=== PATIENT | female | born 1955 | race Caucasian/White ===

== ENCOUNTER 2024-10-27 17:07 | Emergency (ER) | payer MEDICARE, MEDICAID, SELFPAY ==
--- NOTE | 2024-10-27 17:16 | ED_ITS ---
HPI - General Adult General Chief complaint: Eye Problems Stated complaint: scratched eye lid , now inflammation on lids Time Seen by Provider: 10/27/24 17:16 Source: patient and EMS Mode of arrival: EMS Limitations: no limitations History of Present Illness ED Provider: Kristen Moreira PA-C HPI narrative: Patient is a 69 year old assigned female at with a history of anxiety, arthritis, asthma, depression, tobacco use, and PTSD presenting to the emergency department today with left eye swelling and itchiness. Patient states that over the last few days her left eye has been itchy and she has been itching it extensively. Patient states that she was seen by her PCP yesterday and they sent referrals to an payroll specialist but the swelling wasn't this bad. Patient denies any dizziness, lightheadedness, abdominal pain, nausea, vomiting, fever, chills, blurry vision, double vision, loss of vision, chest pain, difficulty breathing, shortness of breath, back pain, night sweats, pain with urination, increased urinary frequency, increased urinary urgency, blood in her urine or stool, syncope or a near syncopal episode, recent trauma or falls, bowel incontinence, bladder incontinence, or any other complaints at this time. Relieving factors: none Exacerbating factors: none Associated symptoms: denies other symptoms Treatments prior to arrival: none Related Data Previous Rx's ?Medication ?Instructions ?Recorded erythromycin 5 mg/gram (0.5 %) eye 0.5 inch ophthalmic (eye) Q4H #3.5 10/27/24 ointment grams loratadine 10 mg capsule (Allergy 10 mg PO DAILY #14 c aps 10/27/24 Relief (loratadine)) Allergies Allergy/AdvReac Type Severity Reaction Status Date / Time No Known Allergies Allergy Verified 10/27/24 17:22 Review of Systems 2 Constitutional: Constitutional: Reports no additional constitutional complaints, Denies chills, Denies fever(s) and Denies night sweats Eyes: Eyes: Reports no additional eye complaints, Denies blurry vision, Denies change in vision, Denies diplopia, Denies eye discharge, Denies loss of vision and Denies eye pain ENT: Denies dizziness Comments: left eye lid swelling + left eye itching Cardiovascular: Cardiovascular: Reports no additional cardiovascular complaints, Denies chest pain, Denies lightheadedness, Denies Loss of Consciousness and Denies dyspnea Respiratory: Respiratory: Reports no additional respiratory complaints and Denies dyspnea Gastrointestinal: Gastrointestinal: Reports no additional gastrointestinal complaints, Denies abdominal pain, Denies melena, Denies hematochezia, Denies change in bowel habits and Denies change in stool character Genitourinary: Genitourinary: Denies hematuria, Denies urinary frequency, Denies dysuria, Denies urinary incontinence, Denies urinary hesitancy and Denies urinary urgency Musculoskeletal: Musculoskeletal: Reports no additional musculoskeletal complaints, Denies numbness and Denies tingling Neurologic: Denies dizziness, Denies loss of vision, Denies numbness and Denies tingling Psychiatric: Psychiatric: Reports no additional psychiatric complaints Endocrine: Endocrine: Reports no additional endocrine complaints Hematologic/Lymphatic: Hematologic/Lymphatic: Reports no additional hematologic/lymphatic complaints Allergic/Immunologic: Allergic/Immunologic: Reports no additional allergic/immunologic complaints [facility] Past Medical History Attestation statement: The following information was validated with the patient. Source: old records reviewed and nursing notes reviewed Social History Social History Advance Directives: No Advance Directives Information Provided: Yes Physical Exam ED Vital Signs: Vital Signs - 24 hr 10/27/24 17:19 Temperature 97 F Pulse Rate 83 Respiratory Rate 16 Blood Pressure 125/75 Pulse Oximetry 98 Oxygen Delivery Method Room Air BMI result Body Mass Index 22.7 Const General: cooperative, no acute distress, alert and awake Nutritional Appearance: well nourished Orientation/consciousness: patient oriented x3 HENMT Head: Yes normal to inspection and Yes atraumatic Ears: hearing grossly normal bilaterally and external ears normal General nose exam: Normal external nose present, no nasal discharge noted and no epistaxis Face and sinus: Yes normal facial exam, No abrasion and No laceration Mouth: Normal oral and palatal mucosa present, no drooling and no muffled voice Eyes Other: Conjunctivae: conjunctivae normal Pupils: Equal, round and reactive pupils present EOM: EOMs intact bilaterally Neck Neck: Yes normal visual inspection, Yes full ROM and Yes no lymphadenopathy Resp Effort & Inspection: normal respiratory effort and able to speak in complete sentences Neuro General: patient oriented x3, moves all extremities and CN's II-XI intact bilaterally Cranial nerves: Yes Equal, round and reactive pupils present Cognition (Neuro): normal cognition Extrem General: Yes normal to inspection, Yes full ROM and Yes capillary refill normal Psych Appearance: grossly normal Mental Status: mental status grossly normal Affect: normal affect Attitude: cooperative Thought process: Normal thought process present Thought content: Normal thought content present Insight: Good insight present (Psych) Medical Decision Making Medical Decision Making MDM Narrative: Patient is a 69 year old assigned female at with a history of anxiety, arthritis, asthma, depression, tobacco use, and PTSD presenting to the emergency department today with left eye swelling and itchiness. Patient's physical exam was as noted in the physical exam portion of this note. Patient's left upper eye lid was swollen however - it was dependent soft tissue swelling with no erythema or warmth. No evidence of cellulitis. Given the patient has eye itching - will cover with erythromycin to provide some itching relief as well as OTC loratidine. I reviewed the note from the patient's PCP appointment yesterday and confirmed that an retail loan originator assistant referral was sent. I explained my physical exam findings to the patient. I answered all questions asked by the patient. I stressed the importance of the patient taking her medication as directed (either prescribed or as the over the counter packaging recommends). I stressed the importance of the patient following up with her primary care provider and an payroll specialist. I stressed the importance of the patient returning to the emergency department immediately if her symptoms were to worsen or if she were to develop any dizziness, shortness of breath, difficulty breathing, chest pain, blurry vision, loss of vision, nausea, vomiting, abdominal pain, fever, chills, back pain, or any other complaints. Patient verbalized agreement and understanding with this treatment plan and discharge. Differential Diagnosis Differential Diagnoses: The differential diagnosis associated with the presentation includes Soft tissue swelling of the left upper eye lid Allergic conjunctivitis Admission/Observation Consideration of admission/observation: Escalation of care including admission/observation considered Patient would have been admitted to the hospital had her clinical presentation warranted hospital admission. Independent Historian Clinical information obtained from an independent historian. History obtained from or confirmed by: EMS (EMS provided additional history and confirmed the history provided by the patient.) External Record Review External record reviewed: Outpatient record (reviewed [facility] PCP office note as noted in the MDM Rationale portion of this note. ) Prescription Management I considered prescription management with: Antibiotic (patient prescribed erythromycin as noted in the MDM Rationale portion of this note. ) Discharge Plan Discharge Clinical Impression: Periorbital swelling Patient Disposition: Home, Self-Care Instructions: Eye Pain (ED) Additional Instructions: Sleep sitting as upright as you can to help keep the swelling in your left upper eyelid down. I prescribed you ointment to help with the inner eye itchiness as well as an oral medication that you should take as prescribed. Your primary care provider in the [facility] already sent ophthalmology referrals. Please follow up with an payroll specialist. Follow up with you primary care provider. Return to the emergency department immediately if your symptoms worsen or if you develop any numbness, tingling, dizziness, shortness of breath, difficulty breathing, chest pain, blurry vision, loss of vision, nausea, vomiting, abdominal pain, fever, chills, back pain, or any other complaints. Please see the information below about our Patient Portal. If you are not yet enrolled in the [facility] Patient Portal, you will receive an enrollment email invitation following your visit to any [facility] care setting. You may also self-enroll in the Patient Portal by visiting our website: [email or web address] The following information is required to access the Patient Portal: - Your [facility] Medical Record Number - Your personal home email address (must match what is in your electronic medical record, Registration staff can assist with this) - Name - Date of Capabilities of the Patient Portal: - Message some providers - View upcoming appointments - Access your health summary, medical history, and visit history - View current conditions and allergies - View procedure and lab results - View your medications, including guidelines, side effects, and precautions - Complete pre-appointment questionnaires requested by your provider - Ready summary reports of your office visits and procedures To access the Patient Portal Mobile [employer], follow these directions: - Search [employer] in the Eugenia Store or [employer] Store - Download the Eugenia - Search for [facility] - Enter your login/password Prescriptions: New erythromycin 5 mg/gram (0.5 %) ointment 0.5 inch ophthalmic (eye) Q4H Qty: 3.5 0RF Allergy Relief (loratadine) 10 mg capsule 10 mg PO DAILY Qty: 14 0RF Print Language: Ukrainian
[2024-10-27 17:19] VITALS: BP 125/75; BP 140/82; PULSE 83; PULSE 84; RESP 16; TEMP 36.1; O2SAT 98; BMI 22.7
[2024-10-27 18:57] VITALS: BP 119/71; PULSE 63; RESP 16; TEMP 37.1; O2SAT 95
[2024-10-27 18:58] VITALS: BP 119/71; PULSE 63; RESP 16; TEMP 37.1; O2SAT 95
== END 2024-10-27 19:41 | disposition home or self-care (01) ==
PROVIDERS: Emergency Provider Emergency Medicine
DX: H02.844 Edema of left upper eyelid (principal); H57.12 Ocular pain, left eye
CPT/HCPCS: 99283; 99284

== ENCOUNTER 2024-12-14 18:51 | Emergency (ER) | payer MEDICARE, MEDICAID, SELFPAY ==
--- NOTE | ~2024-12-14 | US_ITS ---
CLINICAL HISTORY: right leg pain Venous duplex ultrasound right lower extremity Comparison: None provided Findings: The visualized deep veins are fully compressible with normal Doppler color flow and spectral tracings. No popliteal cyst. IMPRESSION: 1. Negative for right lower extremity deep vein thrombosis. This document has been electronically signed by: Pio Wheeler MD on 12/14/2024 20:19:42
[2024-12-14 18:55] VITALS: BP 137/82; PULSE 84; O2SAT 93
--- NOTE | 2024-12-14 18:56 | ED_ITS ---
HPI - General Adult General Chief complaint: Extremity Injury, Lower Stated complaint: Right leg pain Time Seen by Provider: 12/14/24 23:50 Source: patient and EMS Mode of arrival: EMS Limitations: no limitations History of Present Illness ED Provider: Franklyn EATON HPI narrative: The patient is a 69-year-old female with a history of CAD with AZ 1 year ago and 3 years ago. Patient presents to the ED reporting just prior to EMS activation she developed atraumatic sharp right medial leg pain. The patient reports she recalls similar symptoms when she last had a heart attack, prompting ED evaluation. The patient denies associated chest pain, shortness of breath, pleurisy, cough, neck pain, back pain, fever/chills, nausea, vomiting, diaphoresis, or other acute somatic complaint. The patient denies distal paresthesias or recent trauma or falls. Related Data Previous Rx's ?Medication ?Instructions ?Recorded erythromycin 5 mg/gram (0.5 %) eye 0.5 inch ophthalmic (eye) Q4H #3.5 10/27/24 ointment grams loratadine 10 mg capsule (Allergy 10 mg PO DAILY #14 c aps 10/27/24 Relief (loratadine)) acetaminophen 500 mg capsule 1,000 mg (2 x 500 mg) PO .q8 PRN 12/15/24 fever or pain #30 caps cyclobenzaprine 10 mg tablet 10 mg PO TID PRN muscle s pasm #14 12/15/24 tabs ibuprofen 600 mg tablet 600 mg PO Q8H PRN fever or p ain 12/15/24 #30 tabs Allergies Allergy/AdvReac Type Severity Reaction Status Date / Time No Known Allergies Allergy Verified 12/14/24 19:00 Review of Systems 2 Review of Systems: Yes all other systems are reviewed and are negative [facility] Social History Social History Smoked in Last 30 Days: Yes Use of substances other than those prescribed or required for medical reasons: Yes Substance Use Type: Prescription Drugs Advance Directives: No Advance Directives Information Provided: Yes Do you have a plan to hurt others: No Plan Physical Exam ED Vital Signs: Vital Signs - 24 hr 12/14/24 18:59 12/14/24 23:54 Temperature 98.4 F Pulse Rate 85 71 Respiratory Rate 16 16 Blood Pressure 116/65 150/67 H Pulse Oximetry 94 93 Oxygen Delivery Method Room Air Room Air BMI result Body Mass Index 30.3 CONSTITUTIONAL: The patient appears non-toxic, well nourished and in no acute distress. Vital signs as documented. HEAD: Atraumatic, normocephalic. EYES: EOMs grossly intact, pupils equal, conjunctiva clear, no exudate. ENT: Nares patent, no discharge. Airway patent, no audible stridor, visible mucosa is pink and moist without noted lesions. NECK: Trachea is midline, no obvious masses or gross abnormalities. CHEST: Symmetric movement, normal appearance. LUNGS: LS present and CTAB, no w/r/r. Non-labored work of breathing. CARDIAC: Regular Rhythm, S1/S2 appreciated, no murmurs, rubs or gallops. ABDOMEN: Abdomen soft and non-tender x4 quadrants, no palpable masses or organomegaly. : Deferred. EXTREMITIES: Bilateral lower extremities demonstrate no pedal edema, no tenderness to palpation, no erythema or open injury. Distal CSM is intact bilaterally, 2+ DP/PT pulses bilaterally. Normal tone, moves all extremities spontaneously without reported pain. No obvious acute injury or deformity noted. NEURO: Alert and oriented x3, CN II-XII appear grossly intact. Cerebellar Functioning grossly intact. No obvious sensory or motor deficits. Speech clear and appropriate. PSYCH: normal affect, appropriate eye contact, fluid speech, with appropriate response to questioning. No reported suicidality or homicidality. SKIN: Warm, dry, color appropriate, normal turgor. No rashes noted. Course Course Course Narrative: This is an RME: Additional HPI, ROS, PE not included below will be deferred to primary provider. 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 RLE is well perfused, strong pulse, no edema, no calf tenderness, able to flex and extend at knee. Patient states that this pain has happened to her in the past and she was having a heart attack. She has no chest pain or shortness of breath Plan: labs, us further ER eval needed Medications Administered Discontinued Medications Generic Name Dose Route Start Last Admin Trade Name Tami PRN Reason Stop Dose Admin Acetaminophen 975 mg 12/15/24 00:03 12/15/24 00:21 Acetaminophen 325 Mg Tablet PO 12/15/24 00:04 975 mg ONCE ONE Administration Cyclobenzaprine HCl 10 mg 12/15/24 00:03 12/15/24 00:22 Cyclobenzaprine Hcl 10 Mg Tablet PO 12/15/24 00:04 10 mg ONCE ONE Administration Ketorolac Tromethamine 30 mg 12/15/24 00:03 12/15/24 00:22 Ketorolac Tromethamine 30 Mg/Ml Vial IM 12/15/24 00:04 30 mg ONCE ONE Administration Medical Decision Making Medical Decision Making MDM Narrative: 12:05 AM 12/15/2024 (Jayda EATON): The patient is a 69-year-old female presenting to the ED for evaluation of right lower extremity pain which began spontaneously without obvious cause. The patient's exam is benign, no acute findings. Patient appears in no acute distress but is reporting severe pain. The patient reports she experienced similar pain with a previous AZ. the patient's EKG is nonischemic, laboratory evaluation shows normal troponin, no leukocytosis, significant anemia, electrolyte abnormality, WADE, LFT abnormality, or other acute finding. The patient reports pain is sudden onset, described as a spasm, patient's magnesium is normal. Patient was sent for a DVT study which is negative for acute DVT of the right lower extremity. At this time patient's pain appears musculoskeletal, we will obtain repeat troponin and treat with Toradol, Tylenol, and Flexeril. 1:27 AM 12/15/2024 (Jayda EATON): Patient's symptoms have improved with interventions, repeat troponin is negative. The patient will be discharged with anti-inflammatories and Flexeril. Admission/Observation Consideration of admission/observation: Escalation of care including admission/observation considered Lab Data [facility] Lab Attestation statement: I reviewed the patient's lab results. 12/14/24 19:27 12/14/24 19:27 Labs: Lab Results 12/14/24 12/15/24 Range/Units 19:27 00:01 WBC 4.8 (4.8-10.8) X10*3/uL RBC 4.09 L (4.20-5.50) X10*6/uL Hgb 10.9 L (12.0-16.0) g/dl Hct 33.2 L (37.0-47.0) % MCV 81.2 (80.0-98.0) fL MCH 26.7 L (27.0-33.0) pg MCHC 32.8 (31.0-35.0) g/dl RDW 15.0 (11.0-16.0) % Plt Count 172 (160-400) X10*3/uL MPV 9.9 (9.4-12.3) fL Immature Gran % (Auto) 0.2 (0.0-0.4) % Neut % (Auto) 56.8 (45-73) % Lymph % (Auto) 28.1 (20-40) % Early % (Auto) 9.5 (2-11) % Eos % (Auto) 4.8 H (0-4) % Baso % (Auto) 0.6 (0-2) % Lymph # (Auto) 1.4 (1.2-4.9) X10*3/uL Early # (Auto) 0.5 (0.1-1.2) X10*3/uL Eos # (Auto) 0.2 (0.0-0.4) X10*3/uL Baso # (Auto) 0.0 (0.0-0.2) X10*3/uL Abs Immat Gran (auto) 0.01 (0.00-0.03) X10*3/uL Absolute Neuts (auto) 2.8 (2.0-8.3) x10*3/uL Absolute Nucleated RBC 0.000 (0.0-0.012) X10*3/uL Nucleated RBC % (auto) 0.0 (0.0-0.2) /100WBC Sodium 141 (135-145) mmol/L Potassium 4.3 (3.3-5.1) mmol/L Chloride 105 (96-108) mmol/L Carbon Dioxide 28 (22-29) mmol/L Anion Gap 12 (12-20) BUN 15 (9-16) mg/dL Creatinine 0.65 (0.5-1.4) mg/dL Estim Creat Clear Calc 53.2 Estimated GFR > 60 Random Glucose 106 (60-115) mg/dL Calcium 8.9 (8.4-10.2) mg/dL Magnesium 1.9 (1.6-2.6) mg/dL Total Bilirubin 0.3 (0.0-1.0) mg/dL Direct Bilirubin 0.1 (0.0-0.5) mg/dL AST 27 (5-31) U/L ALT 15 (0-31) U/L Alkaline Phosphatase 81 (39-117) U/L Troponin I High Sens < 2.7 < 2.7 (<3.5-17.0) ng/L Total Protein 7.4 (6.5-8.0) g/dL Albumin 4.0 (3.5-5.0) g/dL Independent Interpretation I performed an independent interpretation of an: EKG (EKG shows sinus rhythm with a rate of 75, no evidence of acute ischemia, no ST elevation, no ectopy. QTC 390. No old for comparison.) Radiology Impression Discussion of test interpretation with radiology: I have reviewed the radiologist's reading. Radiologist Impression: CLINICAL HISTORY: right leg pain Venous duplex ultrasound right lower extremity Comparison: None provided Findings: The visualized deep veins are fully compressible with normal Doppler color flow and spectral tracings. No popliteal cyst. IMPRESSION: 1. Negative for right lower extremity deep vein thrombosis. This document has been electronically signed by: Pio Wheeler MD on 12/14/2024 20:19:42 Discharge Plan Discharge Clinical Impression: Leg muscle spasm Patient Disposition: Home, Self-Care Instructions: Leg Cramps (ED), Muscle Spasm (ED) Additional Instructions: Thank you for choosing [facility] Emergency Department for your care today. Thankfully your laboratory evaluation, EKG, ultrasound, and exam today show no evidence of an acute emergent process requiring admission to the hospital or continued ED observation, and it is safe to discharge you home. There is no evidence that your leg pain is related to a heart attack as you previously described. Your leg pain today is likely related to musculoskeletal spasm. You should take alternating (staggered) doses of ibuprofen 600mg and Tylenol 1000mg every 4 hours as needed for any additional pain. Please rest the affected area, and apply ice for 20 minutes every hour. Please stay well hydrated and get plenty of rest. As a part of your care plan, you have also been prescribed a muscle relaxer called Flexeril. Please take this medication only for severe pain or spasm that is not relieved by ibuprofen and/or Tylenol. Muscle relaxer medications can carry high risk of unintentional addiction and abuse. Take this medication only as directed and only if absolutely necessary. This medicine can make you drowsy, you are not allowed to drive, operate heavy machinery, or be the sole care provider for children while taking this medication. Please follow up with your primary care physician for re-evaluation, additional management of your symptoms, and continued preventative care. If you do not have a primary care physician, please call the [facility] at [phone] to establish a new primary care physician. While waiting to establish your new primary care physician, you can call our [facility] at [phone] for non-emergency needs. Please return to the emergency department if you develop a severe or sudden change in your symptoms, a fever over 100.4 that does not improve with Tylenol or Ibuprofen, recurrent vomiting, or any other new or worsening symptoms or concerns. Prescriptions: New cyclobenzaprine 10 mg tablet 10 mg PO TID PRN (Reason: muscle spasm) Qty: 14 0RF ibuprofen 600 mg tablet 600 mg PO Q8H PRN (Reason: fever or pain) Qty: 30 0RF acetaminophen 500 mg capsule 1,000 mg PO .q8 PRN (Reason: fever or pain) Qty: 30 0RF No Action erythromycin 5 mg/gram (0.5 %) ointment 0.5 inch ophthalmic (eye) Q4H Qty: 3.5 0RF Allergy Relief (loratadine) 10 mg capsule 10 mg PO DAILY Qty: 14 0RF Print Language: Japanese
[2024-12-14 18:59] VITALS: BP 116/65; PULSE 85; RESP 16; TEMP 36.9; O2SAT 94; BMI 30.3
--- NOTE | 2024-12-14 19:03 | ECG_ITS ---
Test Reason : fatigue Blood Pressure : */* mmHG Vent. Rate : 75 BPM Atrial Rate : 75 BPM P-R Int : 174 ms QRS Dur : 90 ms QT Int : 350 ms P-R-T Axes : 72 -25 29 degrees QTcB Int : 390 ms Normal sinus rhythm Nonspecific T wave abnormality Abnormal ECG No previous ECGs available Referred By: Elizabeth Cummins Electronically Signed By: Bill Dominguez
[2024-12-14 19:32] LABS: MANUAL DIFF FLAG NO
[2024-12-14 19:36] LABS: Hematocrit 33.2 % (37.0-47.0); Hemoglobin 10.9 g/dl (12.0-16.0); Imm Gran Abs Auto 0.01 X10*3/uL (0.00-0.03); Imm Gran Pct Auto 0.2 % (0.0-0.4); Lymphocytes Absolute Auto 1.4 X10*3/uL (1.2-4.9); Mean Corpuscular HGB Conc 32.8 g/dl (31.0-35.0); Mean Corpuscular Hemoglobin 26.7 pg (27.0-33.0); Mean Corpuscular Volume 81.2 fL (80.0-98.0); NRBC Abs Auto 0.000 X10*3/uL (0.0-0.012); NRBC Pct Auto 0.0 /100WBC (0.0-0.2); Platelet Count 172 X10*3/uL (160-400); Red Blood Count 4.09 X10*6/uL (4.20-5.50); White Blood Count 4.8 X10*3/uL (4.8-10.8)
[2024-12-14 19:51] LABS: Alanine Aminotransferase 15 U/L (0-31); Albumin Level 4.0 g/dL (3.5-5.0); Alkaline Phosphatase 81 U/L (39-117); Anion Gap 12 (12-20); Aspartate Amino Transferase 27 U/L (5-31); Blood Urea Nitrogen 15 mg/dL (9-16); Calcium 8.9 mg/dL (8.4-10.2); Carbon Dioxide 28 mmol/L (22-29); Chloride 105 mmol/L (96-108); Creatinine Clr Calc Pharmacy 53.2; Estimated Glomerular Filt Rate > 60; Magnesium 1.9 mg/dL (1.6-2.6); Potassium 4.3 mmol/L (3.3-5.1); Sodium 141 mmol/L (135-145); Total Protein 7.4 g/dL (6.5-8.0)
[2024-12-14 19:59] LABS: Troponin-I High Sensitivity < 2.7 ng/L (<3.5-17.0)
--- NOTE | 2024-12-14 22:09 | PC.NURSE ---
Informed by registration staff patient now complaining of CP, CP workup already in process, 2nd trop ordered.
[2024-12-14 23:54] VITALS: BP 150/67; PULSE 71; RESP 16; O2SAT 93
[2024-12-15 00:31] LABS: Troponin-I High Sensitivity < 2.7 ng/L (<3.5-17.0)
[2024-12-15 03:16] VITALS: BP 132/69; PULSE 62; RESP 18; TEMP 36.6; O2SAT 98
== END 2024-12-15 03:18 | disposition home or self-care (01) ==
PROVIDERS: Physician Assistant Medical; Emergency Provider Emergency Medicine
DX: M62.831 Muscle spasm of calf (principal); R53.83 Other fatigue; R94.31 Abnormal electrocardiogram [ECG] [EKG]; R60.0 Localized edema; Z79.899 Other long term (current) drug therapy
CPT/HCPCS: 36415; 80048; 80076; 83735; 84484; 85025; 93005; 93971; 96372; 99284; J1885

== ENCOUNTER → 2024-12-14 19:03 | Outpatient (BNV) | payer MEDICARE, MEDICAID, SELFPAY | PROVIDERS: Emergency Provider Emergency Medicine; Visit Provider Internal Medicine Cardiovascular Disease | DX: R94.31 Abnormal electrocardiogram [ECG] [EKG] (principal); R53.83 Other fatigue | CPT/HCPCS: 93010 ==

== ENCOUNTER → 2024-12-14 19:03 | Outpatient (BNV) | payer MEDICARE, MEDICAID, SELFPAY | PROVIDERS: Visit Provider Student in an Organized Health Care Education/Training Program | DX: M79.604 Pain in right leg (principal) | CPT/HCPCS: 93971 ==